=== PATIENT | female | born 1985 | race Caucasian/White ===

== ENCOUNTER 2021-10-28 01:48 | Emergency (ER) | payer OTHER ==
[2021-10-28] MEDS ORDERED: FAMOTIDINE 20 MG/50 ML IVPB 20 MG/50 ML MG IVPB ONE ×2 (01:51→02:18)
[2021-10-28] MEDS ORDERED: METOCLOPRAMIDE HCL INJECTION 10 MG/2 ML VIAL IVPUSH ONE (01:51)
[2021-10-28 01:58] VITALS: TEMP 98.7; BMI 35.4
[2021-10-28] MEDS ORDERED: LACTATED RINGERS SOLUTION 1000 ML INFUS.BAG IV ONE (02:16)
[2021-10-28] MEDS ORDERED: METOCLOPRAMIDE HCL INJECTION 10 MG/2 ML VIAL ONE (02:18)
[2021-10-28 02:47] LABS: PH,URINE >= 9.0 (5.0-8.0); URINE APPEARANCE CLEAR; URINE BILIRUBIN NEGATIVE (NEGATIVE); URINE COLOR YELLOW; URINE GLUCOSE (UA) NEGATIVE (NEGATIVE); URINE KETONE TRACE (NEGATIVE); URINE LEUK ESTERASE NEGATIVE (NEGATIVE); URINE NITRITE NEGATIVE (NEGATIVE); URINE PROTEIN TRACE (NEGATIVE); URINE UROBILINOGEN 0.2 mg/dL (0.2-1.0)
[2021-10-28 03:08] LABS: CHLORIDE 109 mmol/L (98-107); SODIUM 141 mmol/L (136-145)
[2021-10-28] MEDS ORDERED: HALOPERIDOL LACTATE 5 MG/ML IV ONE (03:09)
[2021-10-28] MEDS ORDERED: MAGNESIUM SULF 50% (8.12 MEQ/2 ML-1 GM VIAL) IVPB ONE ×2 (03:09→03:28)
[2021-10-28 03:10] LABS: CALCIUM 8.8 mg/dL (8.5-10.1)
[2021-10-28 03:11] LABS: ALBUMIN 3.3 g/dl (3.4-5.0); ANION GAP 7 MMOL/L (8-16); CO2 25 mmol/L (21-32); EOS % 7.3 % (0-4.5); GLUCOSE,RANDOM 108 mg/dL (74-106); HEMATOCRIT 40.1 % (32.4-45.2); HEMOGLOBIN 14.2 GM/dL (10.7-15.3); LYMPH % 44.4 % (8-40); MCH 32.7 pg (25.7-33.7); MCHC 35.5 g/dl (32.0-36.0); MEAN CELL VOLUME 92.1 fl (80-96); MEAN PLT VOLUME 6.7 fl (7.5-11.1); MONO % 6.8 % (3.8-10.2); NEUT % 40.5 % (42.8-82.8); PLATELET COUNT 291 10^3/uL (134-434); RBC 4.35 M/mm3 (3.60-5.2); RDW 12.9 % (11.6-15.6); WHITE BLOOD COUNT 7.6 K/mm3 (4.0-10.0)
[2021-10-28 03:14] LABS: CREATININE 0.9 mg/dL (0.55-1.3); SGOT/AST 11 U/L (15-37); SGPT/ALT 24 U/L (13-61)
[2021-10-28 03:15] LABS: BILIRUBIN,TOTAL 0.4 mg/dL (0.2-1)
[2021-10-28 03:16] LABS: TOT PROT 6.5 g/dl (6.4-8.2)
[2021-10-28 03:17] LABS: ALK PHOS 46 U/L (45-117)
[2021-10-28] MEDS ORDERED: MAGNESIUM 1GM/D5W - 2 GM/200 ML IVPB IVPB ONE (03:22)
[2021-10-28] MEDS ORDERED: HALOPERIDOL LACTATE 5 MG/ML ONE (03:22)
[2021-10-28 03:46] VITALS: BP 140/64; PULSE 54
== END 2021-10-28 03:47 | disposition home or self-care (01) ==
LOC: FER 01:48
PROC: 3E033GC Introduction of Other Therapeutic Substance into Peripheral Vein, Percutaneous Approach (ICD-10-PCS; principal; 2021-10-28)
DX: F41.0 Panic disorder [episodic paroxysmal anxiety] (principal)
CPT/HCPCS: 36415; 80053; 81003; 84702; 85025; 93005; 99284-25

== ENCOUNTER 2024-02-24 11:07 | Emergency (ER) | payer OTHER ==
[2024-02-24] MEDS ORDERED: IBUPROFEN 400 MG TABLET (FP) PO ONE (11:32)
[2024-02-24] MEDS: IBUPROFEN 400 MG TABLET (FP) PO ONE (11:33)
[2024-02-24 12:25] VITALS: BP 101/71; PULSE 72; RESP 20; TEMP 98; BMI 24.3
== END 2024-02-24 12:59 | disposition home or self-care (01) ==
LOC: FER 11:07
DX: S93.602A Unspecified sprain of left foot, initial encounter (principal); X58.XXXA Exposure to other specified factors, initial encounter
CPT/HCPCS: 73630-TC-LT; 99283-25